=== PATIENT | female | born 1960 | race African-American/Black ===

== ENCOUNTER 2019-07-06 22:15 | Emergency (ER) | payer SELFPAY ==
[2019-07-06] MEDS ORDERED: CLINDAMYCIN HCL 150 MG CAPSULE PO ONE (23:37)
[2019-07-06] MEDS ORDERED: HYDROCODONE/ACETAMINOPHEN 5-325 MG (6 TAB/ER DISP) PO PRN (23:37)
--- NOTE | 2019-07-07 00:18 | ER Document Report ---
ED ENT - General Chief Complaint: Abscess Stated Complaint: SKIN ISSUE Time Seen by Provider: 07/06/19 23:25 Notes: Patient is a 59-year-old female that comes to the emergency department for chief complaint of swelling to the right side of the face and an abscess developing on her lower gumline on the right side. She states she has known teeth that need to be extracted, she is requesting treatment for the abscess and referral to a dentist. She denies sore throat, neck pain, fever/chills, difficulty swallowing, or any other complaints at this time. TRAVEL OUTSIDE OF THE [place] IN LAST 30 DAYS: No - Related Data Allergies/Adverse Reactions: ciprofloxacin Allergy (Verified 07/07/19 00:12) prednisone Allergy (Verified 07/07/19 00:13) Sulfa (Sulfonamide Antibiotics) Allergy (Verified 07/07/19 00:13) Past Medical History - General Information source: Patient - Social History Smoking Status: Never Smoker Frequency of alcohol use: None Drug Abuse: None Lives with: Family Family History: Reviewed & Not Pertinent - Past Medical History Cardiac Medical History: Reports: Hx Hypertension Endocrine Medical History: Reports: Hx Diabetes Mellitus Type 2 - Immunizations Hx Diphtheria, Pertussis, Tetanus Vaccination: Yes Review of Systems - Review of Systems Constitutional: No symptoms reported EENT: See HPI Cardiovascular: No symptoms reported Respiratory: No symptoms reported Gastrointestinal: No symptoms reported Genitourinary: No symptoms reported Female Genitourinary: No symptoms reported Musculoskeletal: No symptoms reported Skin: No symptoms reported Hematologic/Lymphatic: No symptoms reported Neurological/Psychological: No symptoms reported Physical Exam - Vital signs Vitals: Temp Pulse Resp BP Pulse Ox 98.3 F 88 16 187/123 H 97 07/06/19 22:35 07/06/19 22:35 07/06/19 22:35 07/06/19 22:35 07/06/19 22:35 - Notes Notes: GENERAL: Alert, interacts well. No acute distress. HEAD: Normocephalic, atraumatic. EYES: Pupils equal, round, and reactive to light. Extraocular movements intact. ENT: There is subtle swelling to the right side of the jaw but this does not extend to the submandibular space. There is no induration or fluctuance. No trismus of the jaw. Oropharyngeal exam showing widespread dental decay, the lower gumline does have a swollen area with fluctuance with a head. This is over the outer aspect on the right side. Oral pharyngeal exam unremarkable otherwise, tongue unremarkable, nasal and sinus exams are unremarkable. NECK: Full range of motion. Supple. Trachea midline. LUNGS: Clear to auscultation bilaterally, no wheezes, rales, or rhonchi. No respiratory distress. HEART: Regular rate and rhythm. No murmur ABDOMEN: Soft, non-tender. Non-distended. EXTREMITIES: Moves all 4 extremities spontaneously. No edema, normal radial and dorsalis pedis pulses bilaterally. No cyanosis. BACK: no cervical, thoracic, lumbar midline tenderness. No saddle anesthesia, normal distal neurovascular exam. NEUROLOGICAL: Alert and oriented x3. Normal speech. Cranial nerves II through XII grossly intact. PSYCH: Normal affect, normal mood. SKIN: Warm, dry, normal turgor. No rashes or lesions noted. Course - Re-evaluation Re-evalutation: Physical examination shows abscess over the right lower gumline. Patient did allow me to open this using an 18-gauge needle, purulent material was expressed. Placed on clindamycin, referred to local dentist. Discussed expectations, follow-up, and return precautions. Patient states appreciation and agreement. - Vital Signs Vital signs: Temp Pulse Resp BP Pulse Ox 98.1 F 78 18 168/87 H 97 07/07/19 00:45 07/07/19 00:45 07/07/19 00:45 07/07/19 00:45 07/07/19 00:45 Procedures - Incision and Drainage Right lower gum Type: Single Incision Method: Incision made with needle Amount/type of drainage: Less than 1 cc of purulent material expressed, minimal amount of bleeding Discharge - Discharge Clinical Impression: Oral abscess, Facial swelling Condition: Stable Disposition: HOME, SELF-CARE Instructions: Oral Narcotic Medication ([facility]) Additional Instructions: The abscess on your lower gumline has been drained. This will continue to drain over the next couple of days most likely. Take the clindamycin as prescribed, take the pain medication as prescribed if needed. Follow-up closely with the dental clinic or this will continue to occur. Return if you worsen including increased swelling, increased pain, fever, or any other concerning symptoms. [facility] [address], [id number] Prescriptions: Clindamycin HCl [Cleocin 150 mg Capsule] 150 mg PO Q6 #56 capsule Forms: Elevated Blood Pressure
[2019-07-07 01:05] VITALS: BP 168/87
== END 2019-07-07 00:46 | disposition home or self-care (01) ==
LOC: ER 22:15
DX: K12.2 Cellulitis and abscess of mouth (principal); R22.0 Localized swelling, mass and lump, head; I10 Essential (primary) hypertension; E11.9 Type 2 diabetes mellitus without complications; Z88.2 Allergy status to sulfonamides
CPT/HCPCS: 99283